=== PATIENT | female | born 1960 | race American Indian/Alaskan Native ===

== ENCOUNTER 2021-08-23 07:18 | Day surgery (SDC) | payer OTHER ==
[2021-08-23] MEDS ORDERED: ASPIRIN EC 325 MG TAB PO ONE (08:21)
[2021-08-23 09:15] LABS: Blood Urea Nitrogen 14 mg/dL (7-17); Calcium 9.1 mg/dL (8.4-10.2); Hemolysis Index 6
[2021-08-23 09:17] LABS: Basophils % (Auto) 0.8 % (0.0-1.8); Eosinophils # (Auto) 0.1 K/mm3 (0.0-0.4); Eosinophils % (Auto) 2.1 % (0.0-4.3); Hematocrit 41.4 % (30.3-42.9); Hemoglobin 13.1 gm/dl (10.1-14.3); Lymphocytes # (Auto) 1.9 K/mm3 (1.2-5.4); Lymphocytes % (Auto) 35.3 % (13.4-35.0); Mean Corpuscular HGB Conc 32 % (30-34); Mean Corpuscular Volume 82 fl (79-97); Monocytes # (Auto) 0.4 K/mm3 (0.0-0.8); Monocytes % (Auto) 7.7 % (0.0-7.3); Red Blood Count 5.05 M/mm3 (3.65-5.03)
[2021-08-23 09:19] LABS: BUN/Creatinine Ratio 20
[2021-08-23 09:40] LABS: INR 0.93 (0.87-1.13)
[2021-08-23 09:42] LABS: Partial Thromboplastin Time 26.6 Sec. (24.2-36.6)
[2021-08-23] MEDS: SODIUM CHLORIDE 0.9% 500 ML 500 ML IV SCH ×2 (09:43→11:13)
[2021-08-23] MEDS ORDERED: MIDAZOLAM 2 MG/2 ML INJ ONE (10:18)
[2021-08-23] MEDS ORDERED: LIDOCAINE (2%) 20 MG/1 ML VIAL 20 ML MDV INFILTRATI ONE (10:18)
[2021-08-23] MEDS ORDERED: HEPARIN 10,000 UNITS/10 ML VIAL ONE (10:18)
[2021-08-23] MEDS ORDERED: fentaNYL 100 MCG/2 ML INJ ONE (10:18)
[2021-08-23] MEDS ORDERED: HEPARIN/NS 5000 UNIT/500ML 1,000 ML IR ONE (10:18)
[2021-08-23] MEDS ORDERED: VERAPAMIL 5 MG/2 ML INJ ONE (10:18)
[2021-08-23 10:52] LABS: Platelet Count 72 K/mm3 (140-440)
--- NOTE | 2021-08-23 11:27 | Cardiac Catherization Report ---
DATE OF SERVICE: 08/23/2021 INDICATIONS: The patient is a 60-year-old female with history of exertional chest pain and dyspnea and history of diabetes mellitus and underlying obstructive sleep apnea and hyperlipidemia, was noted to have abnormal stress nuclear imaging with PET MPI revealed a small partially reversible inferoapical defect suggestive of mild ischemia, hence scheduled for cardiac catheterization for definitive diagnosis and treatment. The patient also was diagnosed to have paroxysmal atrial fibrillation with rapid ventricular response during her event recorder. DESCRIPTION OF PROCEDURE: The patient was brought to the catheterization laboratory in a fasting condition. The patient is aware of the procedure, potential complications, and alternatives of therapy available. The patient was evaluated for moderate sedation and was felt to be an appropriate candidate for moderate sedation and received IV Versed and fentanyl. Subsequently, local anesthesia was given in the right wrist area and right radial artery puncture was made using 21-gauge arterial puncture needle. A 5-Kittitian slender sheath was introduced. Subclavian artery and innominate arteries were very tortuous. A 5-Kittitian TIG catheter was used to obtain the left coronary angiograms, 6-Kittitian JR4 catheter was used for obtaining the right coronary angiograms and left ventriculogram done in STEELE projection. At the end of the procedure, catheter and sheath were removed. A left ventriculogram was performed using Seeker catheter. At the end of the procedure, catheter and sheath were removed and good hemostasis was achieved with application of radial band. The patient was monitored throughout the procedure for any side effects from sedation. The patient was monitored with an EKG monitoring, and pulse oximetry in addition to hemodynamic monitoring. At the end of the procedure, the patient is communicating normally and breathing normally with no focal deficits. The patient's moderate sedation started at 10:31 and ended at 10:51 a.m. Following findings were noted. HEMODYNAMICS: 1. Aortic pressure 135/86. Left ventricular pressure 135/30. No gradient across the aortic valve. Estimated ejection fraction 65%. 2. Left ventriculogram done in STEELE projection showed normal sized left ventricle with normal contractility. Ejection fraction was felt to be 65%. Mitral regurgitation could not be evaluated because of limited amount of dye injected. 3. Right coronary artery arises normally from right coronary cusp. This is very tortuous, particularly distally, but angiographically normal and smooth. 4. Left coronary artery arises normally from left coronary cusp. The left main, LAD, which curves around the apex and its branches and circumflex artery and its branch are angiographically smooth and normal, tortuous vessels. FINAL IMPRESSION: 1. Normal-sized left ventricle with normal contractility. Mildly elevated end diastolic pressure noted. 2. Normal coronary anatomy, tortuous arteries, otherwise angiographically smooth and normal. Right coronary artery is a dominant vessel. At this time, etiology for her symptoms is not clear. Considering normal coronary anatomy would continue risk factor modification. The patient was transferred to the room in stable condition and no untoward effects were noted. TID: [id number] RECEIPT: [id number] BHAVANA/SADAF HARRIS
--- NOTE | 2021-08-23 12:18 | Short Stay Summary ---
Short Stay Documentation Date of service: 08/23/21 - History H&P: obtained from office - Allergies and Medications Current Medications: Allergies No Known Allergies Allergy (Verified 08/23/21 08:20) Active Medications Sodium Chloride (Nacl 0.9% 500 Ml) 500 mls @ 50 mls/hr IV DIRECT SHELBIE Stop: 08/23/21 18:59 Last Admin: 08/23/21 11:13 Dose: 50 mls/hr Documented by: - Brief post op/procedure progress note Date of procedure: 08/23/21 Pre-op diagnosis: abormal stress test Post-op diagnosis: other (normal coronary) Anesthesia: local Estimated blood loss: minimal - Disposition Condition at discharge: Good Disposition: 01 HOME / SELF CARE / HOMELESS Short Stay Discharge Plan Activity: advance as tolerated Diet: low fat, low cholesterol, low salt Wound: keep clean and dry, per your surgeon's advice Additional Instructions: Patient should follow up with their primary clinical resource director in 1-2 weeks after discharge Follow up with: SHERYL PAL MD [Primary Care Provider] - 7 Days Forms: CardCath PCI D/C Instructions
[2021-08-23 14:39] VITALS: BP 132/72
--- NOTE | 2021-08-24 12:11 | Electrocardiograph Report ---
[facility] Test Date: 2021-08-23 Test Time: 08:40:35 Pat Name: ISAÍAS AMOS Department: Room: Gender: F Elevator Erector: JOANN : 1960 Requested By: RIVER DOMINGUEZ Order Number: [id number] Reading MD: River Dominguez Measurements Intervals [place] Rate: 71 P: 43 ID: [id number] QRS: -1 QRSD: 89 T: 33 QT: 415 QTc: 451 Interpretive Statements Sinus rhythm No previous ECG available for comparison Electronically Signed On 08-24-2021 12:11:03 EST by River Dominguez
== END 2021-08-23 14:05 | disposition home or self-care (01) ==
LOC: CATHLABREC 07:18
PROVIDERS: ATTEND Internal Medicine
DX: R94.39 Abnormal result of other cardiovascular function study (principal); R07.89 Other chest pain; I34.0 Nonrheumatic mitral (valve) insufficiency; E11.9 Type 2 diabetes mellitus without complications; E78.5 Hyperlipidemia, unspecified; I48.91 Unspecified atrial fibrillation; G47.33 Obstructive sleep apnea (adult) (pediatric); J45.909 Unspecified asthma, uncomplicated; E66.01 Morbid (severe) obesity due to excess calories; Z79.899 Other long term (current) drug therapy; Z90.49 Acquired absence of other specified parts of digestive tract; Z98.890 Other specified postprocedural states
CPT/HCPCS: 36415; 80048; 85025; 85610; 85730; 93005; 93458; 99156; 99157; C1887; C1894; J1644; J2250; J3010; J3490; J7040; Q9967